=== PATIENT | male | born 1955 | race Caucasian/White ===

== ENCOUNTER → 2017-01-31 | Outpatient (CLI) | payer MEDICAID ==
[~2017-01-31] MED LIST: ASPI-496 PO; DAPT500V6 IV; DILT240C2 PO; EMPA10TA PO; ERTA1VIA IV; FENO160T PO; GEMF600T PO; GLIM1TAB2 PO; HYDR-3343 PO; INSU100I13 SQ; INSU100V5 SQ-INSULIN; INSU100V8 SQ; LOSA100T6 PO; METF10002 PO; NYST1POW2 TP; OMEP20TA62 PO; TRAM50TA2 PO
== END | disposition home or self-care (01) ==
LOC: EDSTATUS 01-24 07:57 → ROC 08:02
PROVIDERS: ATTEND Radiology Radiation Oncology
DX: C01 Malignant neoplasm of base of tongue (principal); R59.0 Localized enlarged lymph nodes; J98.4 Other disorders of lung; R13.10 Dysphagia, unspecified
CPT/HCPCS: 99213; G0463

== ENCOUNTER → 2017-03-02 | Outpatient (CLI) | payer MEDICAID | END | disposition home or self-care (01) | LOC: ROC 08:18 | PROVIDERS: ATTEND Radiology Radiation Oncology | DX: Z08 Encounter for follow-up examination after completed treatment for malignant neoplasm (principal); C01 Malignant neoplasm of base of tongue; R13.10 Dysphagia, unspecified; R59.0 Localized enlarged lymph nodes; R91.8 Other nonspecific abnormal finding of lung field | CPT/HCPCS: 99213; G0463 ==

== ENCOUNTER → 2017-04-19 | Outpatient (CLI) | payer MEDICAID | END | disposition home or self-care (01) | LOC: PETCFH 08:49 | PROVIDERS: ATTEND Radiology Radiation Oncology | DX: C01 Malignant neoplasm of base of tongue (principal); E11.9 Type 2 diabetes mellitus without complications | CPT/HCPCS: 78815; A9552 ==

== ENCOUNTER → 2017-04-20 | Outpatient (CLI) | payer MEDICAID | END | disposition home or self-care (01) | LOC: ROC 08:18 | PROVIDERS: ATTEND Radiology Radiation Oncology | DX: C01 Malignant neoplasm of base of tongue (principal); R59.0 Localized enlarged lymph nodes; J98.4 Other disorders of lung | CPT/HCPCS: 99212; G0463 ==

== ENCOUNTER 2017-05-12 06:47 | Day surgery (SDC) | payer MEDICAID ==
[~2017-05-12] VITALS: Ht 182.9 cm; Wt 65.9 kg
[2017-05-12] MEDS ORDERED: SODIUM CHLORIDE 0.9% 1,000 ML IV SCH (07:51)
[2017-05-12] MEDS ORDERED: none per pt (07:54)
[2017-05-12] MEDS ORDERED: LIDOCAINE 2%, 20ML ONE (09:06)
[2017-05-12] MEDS ORDERED: MIDAZOLAM 1 MG/ML, 5ML ONE (09:14)
[2017-05-12] MEDS ORDERED: FENTANYL PF 100 MCG/2ML ONE (09:14)
[2017-05-12] MEDS ORDERED: FLUMAZENIL 0.1 MG/1 ML, 5ML ONE (09:15)
[2017-05-12] MEDS ORDERED: NALOXONE 1 MG/ML, 2ML ONE (09:15)
== END 2017-05-12 13:05 ==
LOC: OUT 06:47 → EDSTATUS 09:30 → OUT 13:05
PROVIDERS: ATTEND Internal Medicine Hematology & Oncology
DX: Z45.2 Encounter for adjustment and management of vascular access device (principal); C01 Malignant neoplasm of base of tongue; E11.9 Type 2 diabetes mellitus without complications; Z86.14 Personal history of Methicillin resistant Staphylococcus aureus infection
CPT/HCPCS: 36590; 77001; 99156; 99157; J2250; J3010; J3490; J7030; J2310

== ENCOUNTER → 2017-12-08 | Outpatient (CLI) | payer MEDICAID ==
[~2017-12-08] MED LIST changes: +none per pt
== END ==
LOC: ROC 12-06 10:08
PROVIDERS: ATTEND Radiology Radiation Oncology
DX: Z02.9 Encounter for administrative examinations, unspecified (principal)

== ENCOUNTER 2018-06-17 16:40 | Inpatient (IN) | payer MEDICAID ==
[~2018-06-17] VITALS: Ht 185.4 cm; Wt 66.9 kg
[~2018-06-17 16:40] MED LIST changes: -LOSA100T6 PO; +LOSA100T7 PO
[2018-06-17] MEDS ORDERED: PROMETHAZINE 25 MG/ML, 1ML IM ONE (17:30)
[2018-06-17] MEDS ORDERED: SODIUM CHLORIDE 0.9% 1,000ML IVBOLUS ONE ×2 (17:30→18:30)
[2018-06-17] MEDS ORDERED: SODIUM CHLORIDE FLUSH 10ML SYR IVF ONE ×2 (17:30→18:30)
[2018-06-17] MEDS ORDERED: ONDANSETRON ODT 4 MG ONE (17:40)
[2018-06-17 17:41] LABS: BASOPHILS # (AUTO) 0.02 x10^3/uL (0-0.1); BASOPHILS % (AUTO) 0 % (0-1); EOSINOPHILS % (AUTO) 0 % (1-7); LYMPHOCYTES # (AUTO) 0.35 x10^3/uL (1-3.4); LYMPHOCYTES % (AUTO) 3 % (22-44); MD NO; MEAN CORPUSCULAR HEMOGLOBIN 30.6 pg (27.5-34.5); MEAN CORPUSCULAR HGB CONC 34.3 g/dL (33.2-36.2); MEAN CORPUSCULAR VOLUME 89.3 fL (81-97); MEAN PLATELET VOLUME 8.1 fL (7.4-10.4); MONOCYTES # (AUTO) 0.44 x10^3/uL (0.2-0.8); MONOCYTES % (AUTO) 3 % (2-9); NEUTROPHILS # (AUTO) 13.35 x10^3/uL (1.8-6.8); NEUTROPHILS % (AUTO) 94 % (42-75); PLATELET COUNT 290 x10^3/uL (130-400); RED CELL DISTRIBUTION WIDTH 14.1 % (9.4-14.8)
[2018-06-17 17:51] LABS: ALANINE AMINOTRANSFERASE 478 U/L (12-78); ALBUMIN 2.7 g/dL (3.4-5.0); ANION GAP 13 mmol/L (5-15); CALCIUM 8.6 mg/dL (8.5-10.1); CHLORIDE 93 mmol/L (98-107)
[2018-06-17 17:53] LABS: ALKALINE PHOSPHATASE 109 U/L (45-117); BILIRUBIN,TOTAL 1.5 mg/dL (0.2-1.0); TOTAL PROTEIN 7.4 g/dL (6.4-8.2)
[2018-06-17] MEDS ORDERED: ONDANSETRON ODT 4 MG PO ONE (18:00)
[2018-06-17] MEDS ORDERED: SODIUM CHLORIDE 0.9% 1,000 ML IV ONE (18:09)
[2018-06-17 18:12] LABS: MICROSCOPIC NOT IND
[2018-06-17 18:14] LABS: CULTURE INDICATED? NO
[2018-06-17] MEDS ORDERED: CEFTRIAXONE PMX 1GM/50ML 50 ML ONE (18:20)
[2018-06-17] MEDS ORDERED: CEFTRIAXONE 1,000 MG in SODIUM CHLORIDE 0.9% 50 ML IV ONE (18:30)
[2018-06-17] MEDS ORDERED: INSULIN REGULAR 100 UNITS/ML, 3ML VIAL IVPush ONE (18:30)
[2018-06-17] MEDS ORDERED: AZITHROMYCIN 500 MG in SODIUM CHLORIDE 0.9% 250 ML IV ONE (18:30)
[2018-06-17 18:36] LABS: ACETONE, SERUM Moderate(40mg/dL) mg/dL (Negative)
[2018-06-17] MEDS ORDERED: CALCIUM CARBONATE 500 MG TAB.CHEW ONE (20:21)
[2018-06-17] MEDS: CALCIUM CARBONATE 500 MG TAB.CHEW PO PRN (20:22)
[2018-06-17] MEDS ORDERED: IBUPROFEN 200 MG TABLET PO PRN (20:30)
[2018-06-17] MEDS ORDERED: DOCUSATE 100 MG CAPSULE PO PRN (20:30)
[2018-06-17] MEDS ORDERED: GUAIFENESIN/COD200MG-20MG/10ML LIQUID PO PRN (20:30)
[2018-06-17] MEDS ORDERED: PROMETHAZINE 25 MG/ML, 1ML IM PRN (20:30)
[2018-06-17 21:51] LABS: PH, VENOUS 7.375 pH (7.320-7.420)
[2018-06-17 22:04] LABS: ANION GAP 12 mmol/L (5-15); CHLORIDE 102 mmol/L (98-107); CREATININE 1.55 mg/dL (0.7-1.3)
[2018-06-17 22:12] LABS: HEMOGLOBIN A1C 13.8 % (4.2-6.3)
[2018-06-17 22:30] VITALS: BP 163/107
[2018-06-17 22:57] VITALS: BP 164/103
[2018-06-17] MEDS: hydrALAzine 20 MG/ML, 1ML IVPush PRN (23:14)
[2018-06-17] MEDS: INSULIN LISPRO 100 UNITS/ML, PEN SQ-INSULIN SCH (23:14)
[2018-06-18] MEDS: SODIUM CHLORIDE 0.9% 1,000 ML IV SCH ×3 (01:32→19:56)
[2018-06-18 03:04] VITALS: BP 116/71
[2018-06-18 05:37] LABS: BASOPHILS # (AUTO) 0.03 x10^3/uL (0-0.1); BASOPHILS % (AUTO) 0 % (0-1); EOSINOPHILS % (AUTO) 0 % (1-7); LYMPHOCYTES # (AUTO) 0.71 x10^3/uL (1-3.4); LYMPHOCYTES % (AUTO) 6 % (22-44); MD NO; MEAN CORPUSCULAR HEMOGLOBIN 29.7 pg (27.5-34.5); MEAN CORPUSCULAR HGB CONC 33.3 g/dL (33.2-36.2); MEAN CORPUSCULAR VOLUME 89.2 fL (81-97); MEAN PLATELET VOLUME 8.2 fL (7.4-10.4); MONOCYTES # (AUTO) 0.49 x10^3/uL (0.2-0.8); MONOCYTES % (AUTO) 4 % (2-9); NEUTROPHILS # (AUTO) 11.29 x10^3/uL (1.8-6.8); NEUTROPHILS % (AUTO) 90 % (42-75); PLATELET COUNT 285 x10^3/uL (130-400); RED BLOOD COUNT 3.95 x10^6/uL (4.38-5.82); RED CELL DISTRIBUTION WIDTH 14.3 % (9.4-14.8)
[2018-06-18 05:49] LABS: CHLORIDE 106 mmol/L (98-107)
[2018-06-18 05:50] LABS: ANION GAP 8 mmol/L (5-15); CALCIUM 8.1 mg/dL (8.5-10.1); CREATININE 1.33 mg/dL (0.7-1.3)
[2018-06-18] MEDS: INSULIN LISPRO 100 UNITS/ML, PEN SQ-INSULIN SCH ×4 (07:58→21:01)
[2018-06-18] MEDS: CEFTRIAXONE 1,000 MG in SODIUM CHLORIDE 0.9% 50 ML IV SCH ×2 (07:58→19:56)
[2018-06-18 08:13] VITALS: BP 168/99
[2018-06-18 14:29] VITALS: BP 149/93
[2018-06-18 19:09] VITALS: BP 160/102
[2018-06-18] MEDS: AZITHROMYCIN 500 MG in SODIUM CHLORIDE 0.9% 250 ML IV SCH (20:57)
[2018-06-18] MEDS: CALCIUM CARBONATE 500 MG TAB.CHEW PO PRN (20:57)
[2018-06-19 00:48] VITALS: BP 158/102
[2018-06-19] MEDS: hydrALAzine 20 MG/ML, 1ML IVPush PRN (04:00)
[2018-06-19 04:30] VITALS: BP 126/67
[2018-06-19] MEDS: SODIUM CHLORIDE 0.9% 1,000 ML IV SCH ×2 (04:39→13:25)
[2018-06-19 05:40] LABS: CHLORIDE 106 mmol/L (98-107)
[2018-06-19 05:45] LABS: ANION GAP 10 mmol/L (5-15); CALCIUM 8.1 mg/dL (8.5-10.1); CREATININE 0.71 mg/dL (0.7-1.3)
[2018-06-19] MEDS: INSULIN LISPRO 100 UNITS/ML, PEN SQ-INSULIN SCH ×4 (07:47→21:00)
[2018-06-19] MEDS: CEFTRIAXONE 1,000 MG in SODIUM CHLORIDE 0.9% 50 ML IV SCH ×2 (07:48→19:41)
[2018-06-19 08:44] VITALS: BP 168/99
[2018-06-19 13:55] VITALS: BP 153/87
[2018-06-19 18:34] VITALS: BP 145/80
[2018-06-19] MEDS: AZITHROMYCIN 500 MG in SODIUM CHLORIDE 0.9% 250 ML IV SCH (20:56)
[2018-06-19] MEDS: DRONABINOL 5 MG CAPSULE PO SCH (21:01)
[2018-06-20 00:55] VITALS: BP 130/73
[2018-06-20] MEDS: SODIUM CHLORIDE 0.9% 1,000 ML IV SCH ×2 (01:45→08:44)
[2018-06-20] MEDS: CALCIUM CARBONATE 500 MG TAB.CHEW PO PRN (03:49)
[2018-06-20 07:55] VITALS: BP 153/87
[2018-06-20] MEDS: DRONABINOL 5 MG CAPSULE PO SCH (08:42)
[2018-06-20] MEDS: INSULIN LISPRO 100 UNITS/ML, PEN SQ-INSULIN SCH ×2 (08:43→11:00)
[2018-06-20] MEDS: CEFTRIAXONE 1,000 MG in SODIUM CHLORIDE 0.9% 50 ML IV SCH (08:43)
[2018-06-20] MEDS ORDERED: CEFD300C37 PO (09:10)
[2018-06-20] MEDS ORDERED: DRON5CAP15 PO (09:10)
[2018-06-20] MEDS ORDERED: AZIT500T5 PO (09:10)
[2018-06-20 14:20] VITALS: BP 135/75
[2018-06-20] MEDS ORDERED: METF500T17 PO (17:14)
[2018-06-20] MEDS ORDERED: LISI-167 PO (17:14)
== END 2018-06-20 17:20 | disposition home or self-care (01) | DRG 871 ==
LOC: ED 18:27 → EDIP 20:18 → 4WST 22:16
PROVIDERS: ADMIT Hospitalist; ATTEND Hospitalist
DX: A41.9 Sepsis, unspecified organism (principal); E43 Unspecified severe protein-calorie malnutrition; J15.9 Unspecified bacterial pneumonia; J96.01 Acute respiratory failure with hypoxia; N17.0 Acute kidney failure with tubular necrosis; R64 Cachexia; Z68.1 Body mass index [BMI] 19.9 or less, adult; E11.65 Type 2 diabetes mellitus with hyperglycemia; I10 Essential (primary) hypertension; I16.0 Hypertensive urgency; Z79.4 Long term (current) use of insulin; Z83.3 Family history of diabetes mellitus; Z85.819 Personal history of malignant neoplasm of unspecified site of lip, oral cavity, and pharynx; Z87.891 Personal history of nicotine dependence; Z92.21 Personal history of antineoplastic chemotherapy; Z92.3 Personal history of irradiation
CPT/HCPCS: 36415; 71045; 71250; 74176; 80048; 80053; 80074; 81003; 82010; 82803; 82962; 83036; 83605; 83735; 85025; 87040; 93005; 96361; 96365; 96375; G0378; J0456; J0696; J2550; Q0162; Q0167; J0360; J1815; J7030; J7050

== ENCOUNTER → 2018-07-13 | Outpatient (CLI) | payer MEDICAID ==
[~2018-07-13] MED LIST changes: +AZIT500T5 PO; +CEFD300C37 PO; +DRON5CAP15 PO; +LISI-167 PO; +METF500T17 PO
== END | disposition home or self-care (01) ==
LOC: ROC 07:27
PROVIDERS: ATTEND Radiology Radiation Oncology
DX: C01 Malignant neoplasm of base of tongue (principal)
CPT/HCPCS: 99212; G0463

== ENCOUNTER → 2018-08-14 | Outpatient (CLI) | payer MEDICAID | END | disposition home or self-care (01) | LOC: CFH 09:54 | PROVIDERS: ATTEND Internal Medicine Hematology & Oncology | DX: J90 Pleural effusion, not elsewhere classified (principal); R59.0 Localized enlarged lymph nodes; C01 Malignant neoplasm of base of tongue; E11.9 Type 2 diabetes mellitus without complications | CPT/HCPCS: 70490; 71250 ==

== ENCOUNTER 2018-11-23 07:00 | Outpatient (CLI) | payer MEDICAID ==
[~2018-11-23 07:00] MED LIST changes: +LOSA100T14 PO; -LOSA100T7 PO
== END 2018-11-23 23:59 | disposition home or self-care (01) ==
LOC: ROC 07:00
PROVIDERS: ATTEND Radiology Radiation Oncology
DX: Z08 Encounter for follow-up examination after completed treatment for malignant neoplasm (principal); C01 Malignant neoplasm of base of tongue
CPT/HCPCS: 99212; G0463